=== PATIENT | female | born 1970 | race Caucasian/White ===

== ENCOUNTER 2016-11-19 14:29 | Inpatient (IN) | payer SELFPAY ==
[~2016-11-19] VITALS: Ht 154.9 cm; Wt 87.0 kg
[2016-11-19 15:09] LABS: PLATELET COUNT 214 x10^3mcL (130-400)
[2016-11-19 15:13] LABS: RED CELL DISTRIBUTION WIDTH 17.6 % (11.5-14.5)
[2016-11-19 15:35] LABS: CALCIUM 8.3 mg/dL (8.5-10.1); CARBON DIOXIDE 20.4 mmol/L (21-32); CREATININE SERUM 2.2 mg/dL (0.6-1.0)
[2016-11-19 15:40] LABS: BAND NEUTROPHIL 7 % (0-10); METAMYELOCTE 4 % (0-2); MONOCYTE 3 % (0-7); SEGMENTED NEUTROPHILS 85 % (37-75)
[2016-11-19 15:43] LABS: rbc morphology (normal/abnorm) ABNORMAL (NORMAL)
[2016-11-19 15:44] LABS: PLATELET MORPHOLOGY LARGE PLATELET SEEN
[2016-11-19 15:57] LABS: UA SPECIFIC GRAVITY 1.015 (1.005-1.035); microscopic required? YES; urine erythrocyte TRACE (NEGATIVE)
[2016-11-19 16:15] LABS: TOTAL PROTEIN, SERUM 5.1 g/dL (6.4-8.2)
[2016-11-19 16:24] LABS: BILIRUBIN TOTAL 38.2 mg/dL (0.20-1.00)
[2016-11-19 18:16] VITALS: BP 101/49
[2016-11-19 18:18] VITALS: BP 101/49
[2016-11-19 18:30] LABS: MAGNESIUM 2.1 mg/dL (1.8-2.4)
[2016-11-19 18:43] LABS: FREE T4 0.94 ng/dL (0.76-1.46); T3 TOTAL 0.35 ng/mL
[2016-11-19 18:45] LABS: FREE THYROXINE INDEX 1.7 ug/dL (1.4-4.5); T4(THYROXINE) 4.3 ug/dL (4.7-13.3)
[2016-11-19 18:58] LABS: AMPHETAMINE QUAL UR NONE DETECTED (NEG <=1000)
[2016-11-19 20:30] VITALS: BP 98/51
[2016-11-19 21:42] LABS: CALCIUM 7.5 mg/dL (8.5-10.1); CARBON DIOXIDE 20.6 mmol/L (21-32)
[2016-11-19 21:44] LABS: POTASSIUM SERUM 1.9 mmol/L (3.5-5.1)
[2016-11-20 00:29] LABS: CALCIUM 7.1 mg/dL (8.5-10.1); CARBON DIOXIDE 19.4 mmol/L (21-32); CREATININE SERUM 1.9 mg/dL (0.6-1.0)
[2016-11-20 00:31] LABS: POTASSIUM SERUM 2.2 mmol/L (3.5-5.1)
[2016-11-20 04:51] VITALS: BP 101/46
[2016-11-20 06:19] LABS: PLATELET COUNT 204 x10^3mcL (130-400)
[2016-11-20 06:22] LABS: CALCIUM 7.2 mg/dL (8.5-10.1); CARBON DIOXIDE 18.8 mmol/L (21-32); MAGNESIUM 1.9 mg/dL (1.8-2.4); PHOSPHOROUS 1.6 mg/dL (2.5-4.9)
[2016-11-20 06:49] VITALS: BP 103/54
[2016-11-20 07:10] LABS: POTASSIUM SERUM 2.6 mmol/L (3.5-5.1)
[2016-11-20 08:28] LABS: RED CELL DISTRIBUTION WIDTH 18.1 % (11.5-14.5)
[2016-11-20 08:41] VITALS: BP 104/56
[2016-11-20 10:53] LABS: ATYPICAL LYMPH 1 %; BAND NEUTROPHIL 5 % (0-10); BASOPHIL 0 % (0-2); METAMYELOCTE 1 % (0-2); MONOCYTE 1 % (0-7); SEGMENTED NEUTROPHILS 89 % (37-75); rbc morphology (normal/abnorm) ABNORMAL (NORMAL)
[2016-11-20 10:54] LABS: PLATELET MORPHOLOGY PLATELETS DECREASED; target cell (codocyte) 1+
[2016-11-20 12:46] LABS: CALCIUM 7.1 mg/dL (8.5-10.1); CARBON DIOXIDE 17.9 mmol/L (21-32); CREATININE SERUM 1.9 mg/dL (0.6-1.0)
[2016-11-20 13:14] LABS: POTASSIUM SERUM 2.8 mmol/L (3.5-5.1)
[2016-11-20 14:28] VITALS: BP 94/47
[2016-11-20 16:48] VITALS: BP 93/43
[2016-11-20 21:20] VITALS: BP 102/52
[2016-11-21 04:10] VITALS: BP 100/52
[2016-11-21 06:01] LABS: PLATELET COUNT 192 x10^3mcL (130-400)
[2016-11-21 06:26] LABS: CALCIUM 7.3 mg/dL (8.5-10.1); CREATININE SERUM 2.1 mg/dL (0.6-1.0); MAGNESIUM 2.1 mg/dL (1.8-2.4); PHOSPHOROUS 2.1 mg/dL (2.5-4.9)
[2016-11-21 06:28] LABS: POTASSIUM SERUM 2.4 mmol/L (3.5-5.1)
[2016-11-21 06:31] LABS: RED CELL DISTRIBUTION WIDTH 18.5 % (11.5-14.5)
[2016-11-21 07:00] LABS: BAND NEUTROPHIL 2 % (0-10); METAMYELOCTE 4 % (0-2); MONOCYTE 4 % (0-7); MYELOCYTE 1 % (0-2); SEGMENTED NEUTROPHILS 84 % (37-75); rbc morphology (normal/abnorm) ABNORMAL (NORMAL)
[2016-11-21 07:01] LABS: target cell (codocyte) 1+
[2016-11-21 08:37] VITALS: BP 81/31
[2016-11-21 10:11] VITALS: BP 86/46
[2016-11-21 13:55] VITALS: BP 84/43
[2016-11-21 16:17] VITALS: BP 82/45
[2016-11-21 20:22] VITALS: BP 102/64
[2016-11-22] VITALS (14 sets, daily range): BP systolic 74–114; BP diastolic 32–64
[2016-11-22 06:23] LABS: PLATELET COUNT 170 x10^3mcL (130-400)
[2016-11-22 06:34] LABS: CALCIUM 7.2 mg/dL (8.5-10.1); CARBON DIOXIDE 16.1 mmol/L (21-32); MAGNESIUM 2.1 mg/dL (1.8-2.4); PHOSPHOROUS 1.9 mg/dL (2.5-4.9)
[2016-11-22 06:40] LABS: POTASSIUM SERUM 2.7 mmol/L (3.5-5.1)
[2016-11-22 07:03] LABS: RED CELL DISTRIBUTION WIDTH 18.4 % (11.5-14.5)
[2016-11-22 11:18] LABS: BAND NEUTROPHIL 1 % (0-10); BASOPHIL 0 % (0-2); MONOCYTE 6 % (0-7); SEGMENTED NEUTROPHILS 89 % (37-75)
[2016-11-22 11:20] LABS: PLATELET MORPHOLOGY PLATELETS DECREASED; rbc morphology (normal/abnorm) ABNORMAL (NORMAL)
[2016-11-22 18:43] LABS: PLATELET COUNT 165 x10^3mcL (130-400)
[2016-11-22 18:44] LABS: CALCIUM 6.9 mg/dL (8.5-10.1); CARBON DIOXIDE 15.6 mmol/L (21-32); CREATININE SERUM 2.3 mg/dL (0.6-1.0); MAGNESIUM 1.8 mg/dL (1.8-2.4); PHOSPHOROUS 1.9 mg/dL (2.5-4.9); POTASSIUM SERUM 3.1 mmol/L (3.5-5.1)
[2016-11-22 19:17] LABS: RED CELL DISTRIBUTION WIDTH 18.7 % (11.5-14.5)
[2016-11-22 19:31] LABS: BAND NEUTROPHIL 3 % (0-10); BASOPHIL 0 % (0-2); MONOCYTE 4 % (0-7); SEGMENTED NEUTROPHILS 88 % (37-75); rbc morphology (normal/abnorm) ABNORMAL (NORMAL)
[2016-11-22 19:32] LABS: PLATELET MORPHOLOGY PLATELETS NORMAL
[2016-11-23] VITALS (17 sets, daily range): BP systolic 88–126; BP diastolic 42–85
[2016-11-23 07:23] LABS: PLATELET COUNT 177 x10^3mcL (130-400)
[2016-11-23 07:39] LABS: CALCIUM 7.1 mg/dL (8.5-10.1); CARBON DIOXIDE 14.8 mmol/L (21-32); CREATININE SERUM 2.2 mg/dL (0.6-1.0); MAGNESIUM 1.9 mg/dL (1.8-2.4); PHOSPHOROUS 2.8 mg/dL (2.5-4.9); POTASSIUM SERUM 3.6 mmol/L (3.5-5.1)
[2016-11-23 07:56] LABS: RED CELL DISTRIBUTION WIDTH 18.6 % (11.5-14.5)
[2016-11-23 07:59] LABS: BILIRUBIN DIRECT 28.04 mg/dL (0.0-0.2)
[2016-11-23 08:02] LABS: BILIRUBIN TOTAL 35.4 mg/dL (0.20-1.00)
[2016-11-23 09:28] LABS: rbc morphology (normal/abnorm) NORMAL (NORMAL)
[2016-11-24] VITALS (18 sets, daily range): BP systolic 89–103; BP diastolic 41–67
[2016-11-24 04:53] LABS: PLATELET COUNT 188 x10^3mcL (130-400)
[2016-11-24 05:05] LABS: CALCIUM 6.9 mg/dL (8.5-10.1); CARBON DIOXIDE 14.2 mmol/L (21-32); CREATININE SERUM 2.8 mg/dL (0.6-1.0); MAGNESIUM 1.7 mg/dL (1.8-2.4)
[2016-11-24 05:08] LABS: RED CELL DISTRIBUTION WIDTH 18.6 % (11.5-14.5)
[2016-11-24 05:10] LABS: POTASSIUM SERUM 2.6 mmol/L (3.5-5.1)
[2016-11-24 05:16] LABS: BAND NEUTROPHIL 7 % (0-10); MONOCYTE 8 % (0-7); SEGMENTED NEUTROPHILS 74 % (37-75)
[2016-11-24 05:19] LABS: BASOPHIL 0 % (0-2); METAMYELOCTE 7 % (0-2); MYELOCYTE 2 % (0-2)
[2016-11-24 05:23] LABS: PLATELET MORPHOLOGY LARGE PLATELET SEEN; rbc morphology (normal/abnorm) ABNORMAL (NORMAL)
[2016-11-24 10:44] LABS: BILIRUBIN DIRECT 28.21 mg/dL (0.0-0.2)
[2016-11-24 10:47] LABS: BILIRUBIN TOTAL 32.9 mg/dL (0.20-1.00)
[2016-11-24 12:42] LABS: PLATELET COUNT 207 x10^3mcL (130-400)
[2016-11-24 12:44] LABS: RED CELL DISTRIBUTION WIDTH 18.5 % (11.5-14.5)
[2016-11-24 12:49] LABS: CALCIUM 6.9 mg/dL (8.5-10.1); CARBON DIOXIDE 15.8 mmol/L (21-32); MAGNESIUM 1.7 mg/dL (1.8-2.4); PHOSPHOROUS 3.5 mg/dL (2.5-4.9); POTASSIUM SERUM 3.2 mmol/L (3.5-5.1)
[2016-11-24 13:35] LABS: MONOCYTE 2 % (0-7); SEGMENTED NEUTROPHILS 77 % (37-75)
[2016-11-24 13:36] LABS: BAND NEUTROPHIL 8 % (0-10); METAMYELOCTE 7 % (0-2); MYELOCYTE 3 % (0-2); rbc morphology (normal/abnorm) ABNORMAL (NORMAL)
[2016-11-24 18:12] LABS: PLATELET COUNT 198 x10^3mcL (130-400)
[2016-11-24 18:15] LABS: RED CELL DISTRIBUTION WIDTH 18.3 % (11.5-14.5)
[2016-11-24 18:23] LABS: CALCIUM 6.9 mg/dL (8.5-10.1); CARBON DIOXIDE 21.1 mmol/L (21-32); CREATININE SERUM 3.4 mg/dL (0.6-1.0); MAGNESIUM 2.2 mg/dL (1.8-2.4); PHOSPHOROUS 3.7 mg/dL (2.5-4.9); POTASSIUM SERUM 3.2 mmol/L (3.5-5.1)
[2016-11-24 19:03] LABS: BAND NEUTROPHIL 7 % (0-10); BASOPHIL 0 % (0-2); METAMYELOCTE 4 % (0-2); MONOCYTE 1 % (0-7); MYELOCYTE 2 % (0-2); SEGMENTED NEUTROPHILS 84 % (37-75)
[2016-11-24 19:04] LABS: rbc morphology (normal/abnorm) ABNORMAL (NORMAL)
[2016-11-25] VITALS (17 sets, daily range): BP systolic 66–163; BP diastolic 23–82; Ht 154.9 cm; Wt 87.0 kg
[2016-11-25 05:20] LABS: PLATELET COUNT 244 x10^3mcL (130-400)
[2016-11-25 05:36] LABS: RED CELL DISTRIBUTION WIDTH 18.4 % (11.5-14.5)
[2016-11-25 05:39] LABS: CALCIUM 7.2 mg/dL (8.5-10.1); CARBON DIOXIDE 18.8 mmol/L (21-32); CREATININE SERUM 3.8 mg/dL (0.6-1.0); MAGNESIUM 2.3 mg/dL (1.8-2.4); POTASSIUM SERUM 3.9 mmol/L (3.5-5.1)
[2016-11-25 05:48] LABS: BAND NEUTROPHIL 8 % (0-10); METAMYELOCTE 10 % (0-2); MONOCYTE 8 % (0-7); MYELOCYTE 2 % (0-2); SEGMENTED NEUTROPHILS 72 % (37-75)
[2016-11-25 05:51] LABS: PLATELET MORPHOLOGY LARGE PLATELET SEEN; rbc morphology (normal/abnorm) ABNORMAL (NORMAL)
[2016-11-26 02:15] VITALS: BP 115/53
[2016-11-26 03:25] VITALS: BP 77/39
[2016-11-26 03:39] VITALS: BP 77/39
== END 2016-11-26 05:50 | disposition expired | DRG 871 ==
LOC: ED 14:29 → EDBD 14:29 → DU 16:47 → IC 11-22 21:03
PROVIDERS: Emergency Medicine; Family Medicine Sports Medicine; ADMIT Family Medicine
PROC: 0BH17EZ Insertion of Endotracheal Airway into Trachea, Via Natural or Artificial Opening (ICD-10-PCS; principal; 2016-11-23)
PROC: 5A1945Z Respiratory Ventilation, 24-96 Consecutive Hours (ICD-10-PCS; 2016-11-23)
PROC: 02HV33Z Insertion of Infusion Device into Superior Vena Cava, Percutaneous Approach (ICD-10-PCS; 2016-11-23)
DX: A41.9 Sepsis, unspecified organism (principal); K72.00 Acute and subacute hepatic failure without coma; N17.0 Acute kidney failure with tubular necrosis; R65.21 Severe sepsis with septic shock; E43 Unspecified severe protein-calorie malnutrition; J96.01 Acute respiratory failure with hypoxia; K65.2 Spontaneous bacterial peritonitis; N39.0 Urinary tract infection, site not specified; E87.1 Hypo-osmolality and hyponatremia; J98.11 Atelectasis; D68.9 Coagulation defect, unspecified; E87.6 Hypokalemia; B19.20 Unspecified viral hepatitis C without hepatic coma; K70.30 Alcoholic cirrhosis of liver without ascites; E83.39 Other disorders of phosphorus metabolism; D53.9 Nutritional anemia, unspecified; F10.10 Alcohol abuse, uncomplicated; K72.90 Hepatic failure, unspecified without coma; E66.9 Obesity, unspecified; K76.0 Fatty (change of) liver, not elsewhere classified; N18.9 Chronic kidney disease, unspecified; Z72.89 Other problems related to lifestyle
CPT/HCPCS: 36556; 36600; 76770; 82962; 83880; 84439; A4628; G0480; J0330; J0696; J1642; J1940; J2060; J2250; J2270; J2370; J2405; J2543; J3370; J3430; J3475; J3480; J3490; J7030; J7040; J7510; J7620; P9047; Q0092